=== PATIENT | male | born 1995 | race American Indian/Alaskan Native ===

== ENCOUNTER 2018-07-23 14:38 | Emergency (ER) | payer SELFPAY | END 2018-07-23 16:32 | disposition home or self-care (01) | LOC: C.ER 14:38 ==

== ENCOUNTER 2018-08-15 10:09 | Emergency (ER) | payer BC ==
[2018-08-15 10:10] VITALS: BMI 21.3
[2018-08-15 10:22] VITALS: RESP 18; TEMP 97.6
[2018-08-15 10:54] LABS: URINE BILIRUBIN NEGATIVE (NEGATIVE); URINE BLOOD NEGATIVE (NEGATIVE); URINE CLARITY Hazy (Clear); URINE COLOR Amber (YELLOW); URINE GLUCOSE (UA) NORMAL (Normal); URINE LEUKOCYTE ESTERASE NEG Leu/uL (Negative); URINE PROTEIN NEGATIVE (NEGATIVE)
--- NOTE | 2018-08-15 11:12 | C.PDOC ---
History Of Present Illness 22 year old male presents to ED with complaint of new onset dysuria that started today. Patient states that he is concerned for STD exposure, as he has been having unprotected sex continuously with same person for the past month. Patient's last exposure was 2-3 weeks. Patient denies fever, discharge, rashes, and swelling. Time Seen by Provider: 08/15/18 10:30 Chief Complaint (Nursing): Male Genitourinary History Per: Patient History/Exam Limitations: no limitations Onset/Duration Of Symptoms: Hrs Current Symptoms Are (Timing): Still Present Quality Of Discomfort: "Pain" Associated Symptoms: Urinary Symptoms (dysuria). denies: Fever, Chills Past Medical History Reviewed: Historical Data, Nursing Documentation, Vital Signs Vital Signs: Last Vital Signs Temp 97.6 F 08/15/18 10:20 Pulse 85 08/15/18 10:20 Resp 18 08/15/18 10:20 BP 124/79 08/15/18 10:20 Pulse Ox 97 08/15/18 10:20 Primary Care Provider: Non [facility] Provider, - Medical History PMH: No Chronic Diseases Surgical History: No Surg Hx Family History: States: Unknown Family Hx - Social History Hx Alcohol Use: Yes Hx Substance Use: Yes - Immunization History Hx Tetanus Toxoid Vaccination: No Hx Influenza Vaccination: No Hx Pneumococcal Vaccination: No Review Of Systems Except As Marked, All Systems Reviewed And Found Negative. Genitourinary: Positive for: Dysuria Physical Exam - Physical Exam Appears: Well, Non-toxic, No Acute Distress Skin: Normal Color, Warm, Dry Head: Atraumatic, Normacephalic Neck: Normal ROM, Supple Chest: Symmetrical, No Deformity Cardiovascular: Rhythm Regular, No Murmur Respiratory: No Accessory Muscle Use, No Rales, No Rhonchi, No Wheezing, Other (NARD) Gastrointestinal/Abdominal: Soft, No Tenderness Extremity: Capillary Refill (<2 seconds) Extremity: Bilateral: Atraumatic, Normal Color And Temperature, Normal ROM Pulses: Left Radial: Normal, Right Radial: Normal Neurological/Psych: Oriented x3, Normal Speech, Normal Cognition ED Course And Treatment - Laboratory Results Lab Results: Urine Color Torie (YELLOW) 08/15/18 10:40 Urine Clarity Hazy (Clear) 08/15/18 10:40 Urine pH 6.0 (5.0-8.0) 08/15/18 10:40 Ur Specific [place] 1.027 (1.003-1.030) 08/15/18 10:40 Urine Protein Negative mg/dL (NEGATIVE) 08/15/18 10:40 Urine Glucose (UA) Normal mg/dL (Normal) 08/15/18 10:40 Urine Ketones Negative mg/dL (NEGATIVE) 08/15/18 10:40 Urine Blood Negative (NEGATIVE) 08/15/18 10:40 Urine Nitrate Negative (NEGATIVE) 08/15/18 10:40 Urine Bilirubin Negative (NEGATIVE) 08/15/18 10:40 Urine Urobilinogen 4.0 mg/dL (0.2-1.0) 08/15/18 10:40 Ur Leukocyte Esterase Neg Andrea/uL (Negative) 08/15/18 10:40 Urine WBC (Auto) 1 /hpf (0-5) 08/15/18 10:40 Urine RBC (Auto) 1 /hpf (0-3) 08/15/18 10:40 O2 Sat by Pulse Oximetry: 97 Medical Decision Making Medical Decision Making: MDM Patient given STD clinic referral, advised on safe sex practices, and will be treated for GC Patient refusing GC treatment. Patient advised to follow up in clinic for HIV testing. Disposition Counseled Patient/Family Regarding: Diagnosis, Need For Followup - Disposition Referrals: [facility] [Other] Disposition: HOME/ ROUTINE Disposition Time: 11:12 Condition: GOOD Additional Instructions: YOU HAVE BEEN ADVISED OF THE IMPORTANCE OF TREATMENT FOR GONORRHEA AND CHLAMYDIA. YOU HAVE REFUSED TREATMENT FOR GONORRHEA AND CHLAMYDIA. FOLLOW UP [facility] FOR FURTHER STD EVALUATION. SAFE SEX PRACTICE INSTRUCTION DISCUSSED. Instructions: Syphilis Screening Test Forms: [employer] (Lao) - Clinical Impression Clinical Impression: Potential exposure to STD - Scribe Statement The provider has reviewed the documentation as recorded by the Scribe (Sarah Pena) All medical record entries made by the Scribe were at my direction and personally dictated by me. I have reviewed the chart and agree that the record accurately reflects my personal performance of the history, physical exam, medical decision making, and the department course for this patient. I have also personally directed, reviewed, and agree with the discharge instructions and disposition.
[2018-08-15 11:21] VITALS: BP 120/71; PULSE 75
[2018-08-15 11:28] VITALS: O2SAT 97
== END 2018-08-15 11:20 | disposition home or self-care (01) ==
LOC: C.ER 10:09
DX: Z20.2 Contact with and (suspected) exposure to infections with a predominantly sexual mode of transmission (principal)